=== PATIENT | female | born 1990 | race Caucasian/White ===

== ENCOUNTER 2018-10-26 20:00 | Inpatient (IN) | payer OTHER ==
[2018-10-26] MEDS ORDERED: TUBERCULIN PPD 5 TU/0.1ML SYRINGE (IN PATIENT USE ONLY) ID ONE (23:30)
[2018-10-26] MEDS ORDERED: BUTORPHANOL TARTRATE 1 MG/ML VIAL IVPB ONE (23:32)
[2018-10-26] MEDS ORDERED: PROMETHAZINE HCL 25 MG/1 ML VIAL IVPUSH ONE (23:32)
[2018-10-26 23:39] LABS: BASO % 0.5 % (0-2.0); EOS % 0.5 % (0-4.5); HEMATOCRIT 25.8 % (32.4-45.2); HEMOGLOBIN 8.7 GM/dL (10.7-15.3); LYMPH % 15.3 % (8-40); MCH 20.8 pg (25.7-33.7); MCHC 33.8 g/dl (32.0-36.0); MEAN CELL VOLUME 61.5 fl (80-96); MEAN PLT VOLUME 9.8 fl (7.5-11.1); MONO % 5.7 % (3.8-10.2); PLATELET COUNT 258 K/MM3 (134-434); RBC 4.19 M/mm3 (3.60-5.2); RDW 15.4 % (11.6-15.6)
--- NOTE | 2018-10-26 23:46 | HP ---
Past Medical History - Primary Care Physician PCP:: Rebekah Pyle - Admission Chief Complaint: 28 yrs EDC 10/23/18 , 40.3 weeks iup c/o pain onset since 5.00 pm today.pins q 5-6 min strong. h/o feeling wet since today AM. pt is drp in from [facility], suppose to deliver at [facility] History of Present Illness: pt brought records with her mainly provider notes are seen. U/A from eachprenatal visit noted All lab values , panel initial, & later is not seen Chart review pt seen in ER on 03/11/18 siup 8 weeks 03/15/18 repeat sono documents SLIUP fhr 160 bpm anemia h/h 8.5 /27.3, Plt 206. Blood Type A Pos , urine c /s no growth echogenic bowel noted in anatomy sono at 18 weeks Genetic counselling done : NIPT done reported normal / neg, Fragile X neg, sma rcr neg , Hgb A1A2, Sickle neg , NT Screen neg. 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 growth us were done last sono on 09/24/18: 35.6 wks sliup, cephalic, placenta Lt lateral, DREW 10.28cm efw 5'11" (32%tile), normal appearing bowel pt 's brought more records which gives Hbsag neg, Rubella immune, Hiv neg, Rpr neg , h/h 8.4/26.7 07/31/18 rpr nr, hiv nr 08/11/18 3 hr gtt 78, 137,108, 113, h/h 7.4/24.7 09/10/18 Ferritin 42, Folate 13.6ng, vit B12 443 pg, Iron level 211 mcg, Tibc 388, Transferrin 333, HgbA1c 4.4 10/01/18 h/h 8.3/27.3 GBS neg, GC/CT neg History Source: Patient, Medical Record Limitations to Obtaining History: No Limitations - Past Medical History Cardiovascular: No: HTN Pulmonary: No: Asthma Gastrointestinal: Yes: Constipation Hepatobiliary: No: Hepatitis B Renal/: No: UTI ...: 1 ...Para: 0 ...Term: 0 ...: 0 ...Spon : 0 ...Induced : 0 ...LMP: 01/16/18 ... Weeks Gestation by Dates: 40.3 ...EDC by Dates: 10/23/18 ...EDC by Sono: 10/23/18 (40.3 ) Heme/Onc: Yes: Anemia. No: Sickle Cell Trait Psych: No: Addictions, Anxiety, Bipolar, Depression, Panic, Psychosis, Schizophrenia, Other Endocrine: No: Diabetes Mellitus, Hypothyroidism - Past Surgical History Past Surgical History: Yes: None Hx Myomectomy: No Hx Transabdominal Cerclage: No - Smoking History Smoking history: Former smoker (age 16 yrs) Have you smoked in the past 12 months: No - Alcohol/Substance Use Hx Alcohol Use: No History of Substance Use: reports: None Home Medications - Allergies Allergies/Adverse Reactions: Allergies Allergy/AdvReac Type Severity Reaction Status Date / Time No Known Allergies Allergy Verified 10/26/18 22:36 - Home Medications Home Medications: Ambulatory Orders Prenat 115/Iron Fum/Folic/Dss [ 19 Tablet] 1 each PO DAILY 10/23/18 Physical Exam - Maternity Vital Signs: Vital Signs Temperature 98.8 F 10/26/18 22:37 Pulse Rate 75 10/26/18 22:37 Respiratory Rate 20 10/26/18 22:37 Blood Pressure 137/79 10/26/18 22:37 O2 Sat by Pulse Oximetry (%) Constitutional: Yes: Well Nourished, Anxious, Obese, Pallor, Other (nervous) Eyes: Yes: WNL HENT: Yes: WNL, Normocephalic Neck: Yes: WNL, Trachea Midline Cardiovascular: Yes: WNL, Regular Rate and Rhythm Lungs: Clear to auscultation Breast(s): Yes: WNL, Other (rt areolar skin is dry flaky thickened Lt areolar skin normal Nipples normal). No: Mass - Abdominal Exam/OB Fundal Height: 38 Number of Fetuses: Single Presentation: Vertex Contractions: Yes Regularity: Irregular (5-6) Intensity: Mod/Strong Monitor Mode: External Heart Rate (range): 130 Heart Rate Location: [facility] Category: I Accelerations: Uniform Decelerations: None - Vaginal Exam/OB Vaginal Bleediing: Bloody Show Speculum Exam: No Dilatation (cm): 4 Effacement (%): 90 Amniotic Membrane Status: Intact (not sure) Presentation: Vertex/Position (exam at 11.o"clock) Station: -2 - Physical Exam Musculoskeletal: Yes: WNL Extremities: Yes: WNL. No: Calf Tenderness Edema: Yes Edema: RUE: 1+, LLE: 1+ Integumentary: Yes: WNL Deep Tendon Reflex Grade: Normal +2 ...Motor Strength: WNL Psychiatric: Yes: WNL, Alert, Oriented - Labs Lab Results: Laboratory Tests 10/26/18 10/26/18 10/26/18 23:25 23:25 23:25 WBC 11.0 H Hgb 8.7 L Hct 25.8 L MCV 61.5 L MCH 20.8 L Plt Count 258 PT with INR 10.00 INR 0.85 PTT (Actin FS) 27.5 Sodium Potassium Chloride 105 Carbon Dioxide BUN Creatinine Random Glucose Total Bilirubin AST ALT Urine Protein 10/26/18 10/26/18 23:25 23:55 WBC Hgb Hct MCV MCH Plt Count PT with INR INR PTT (Actin FS) Sodium 138 Potassium 3.9 Chloride 105 Carbon Dioxide 25 BUN 13 Creatinine 0.8 Random Glucose 101 Total Bilirubin 0.3 AST 25 ALT 17 Urine Protein Negative Problem List - Problems (1) Post term over 40 weeks Code(s): O48.0 - POST-TERM (2) Anemia affecting first Code(s): O99.019 - ANEMIA COMPLICATING , UNSPECIFIED TRIMESTER (3) Obesity (BMI 30.0-34.9) Code(s): E66.9 - OBESITY, UNSPECIFIED (4) with care elsewhere Code(s): Z34.90 - ENCNTR FOR SUPRVSN OF NORMAL , UNSP, UNSP TRIMESTER Assessment/Plan 28 yrs 40.3 weeks , in labor Gbs neg severe anemia Plan : trial of labor pt prefers natural, analgesics or epidural analgesia declined anticipate vag del may ambulate 10/27/18 1.00AM cx 5cm/90/post/vx -1 /M?intact , bloody show pt tense , still declines meds for pain
[2018-10-26 23:57] LABS: INR 0.85 (0.83-1.09)
[2018-10-27] LABS: ACTIVATED PTT 27.5 SECONDS (25.2-36.5)
[2018-10-27 00:03] LABS: ANION GAP 9 MMOL/L (8-16); BLOOD UREA NITROGEN 13 mg/dL (7-18); CALCIUM 8.4 mg/dL (8.5-10.1); CHLORIDE 105 mmol/L (98-107); CO2 24 mmol/L (21-32); CREATININE 0.8 mg/dL (0.55-1.3); GLUCOSE,RANDOM 103 mg/dL (74-106); POTASSIUM 3.8 mmol/L (3.5-5.1); SODIUM 138 mmol/L (136-145)
[2018-10-27 00:07] LABS: ALBUMIN 2.5 g/dl (3.4-5.0); ALK PHOS 168 U/L (45-117); ANION GAP 8 MMOL/L (8-16); BILIRUBIN,TOTAL 0.3 mg/dL (0.2-1); BLOOD UREA NITROGEN 13 mg/dL (7-18); CALCIUM 8.4 mg/dL (8.5-10.1); CHLORIDE 105 mmol/L (98-107); CO2 25 mmol/L (21-32); CREATININE 0.8 mg/dL (0.55-1.3); GLUCOSE,RANDOM 101 mg/dL (74-106); POTASSIUM 3.9 mmol/L (3.5-5.1); SGOT/AST 25 U/L (15-37); SGPT/ALT 17 U/L (13-61); SODIUM 138 mmol/L (136-145); TOT PROT 6.6 g/dl (6.4-8.2)
[2018-10-27 00:11] LABS: URINE APPEARANCE CLEAR; URINE BILIRUBIN NEGATIVE (<2.0 mg/dL); URINE COLOR STRAW; URINE GLUCOSE (UA) NEGATIVE (NEGATIVE); URINE KETONE NEGATIVE (NEGATIVE); URINE LEUK ESTERASE TRACE (NEGATIVE); URINE NITRITE NEGATIVE (NEGATIVE); URINE PROTEIN NEGATIVE (NEGATIVE); URINE UROBILINOGEN NEGATIVE mg/dL (0.2-1.0)
[2018-10-27 00:13] VITALS: BMI 31.1
[2018-10-27 00:21] LABS: EPI CELLS RARE /HPF (FEW)
[2018-10-27 00:59] LABS: ANISOCYTOSIS 2+; MACROCYTOSIS 0; PLATELET ESTIMATE NORMAL; TEAR DROP CELLS 2+
[2018-10-27] MEDS: DEXTROSE 5%-LACTATED RINGERS 1,000 ML IV SCH ×2 (01:17→03:05)
[2018-10-27] MEDS ORDERED: BUTORPHANOL TARTRATE 1 MG/ML VIAL ONE ×3 (01:54→06:03)
[2018-10-27] MEDS ORDERED: PROMETHAZINE HCL 25 MG/1 ML VIAL ONE ×2 (01:54→06:03)
[2018-10-27] MEDS ORDERED: OXYTOCIN 30 UNITS in 0.9% NS 30 UNIT/500 ML INFUS.BAG IVPB ONE (03:02)
[2018-10-27] MEDS ORDERED: OXYTOCIN 30 UNITS in 0.9% NS 30 UNIT/500 ML INFUS.BAG IVPB SCH (04:30)
[2018-10-27] MEDS ORDERED: BUTORPHANOL TARTRATE 1 MG/ML VIAL IVPB ONE (06:30)
[2018-10-27] MEDS ORDERED: PROMETHAZINE HCL 25 MG/1 ML VIAL IVPB ONE (06:30)
[2018-10-27] MEDS ORDERED: OXYTOCIN 20 UNITS in 0.9% NS 20 UNIT/1,000 ML INFUS.BAG IV ONE ×2 (06:34→07:29)
[2018-10-27] MEDS ORDERED: LIDOCAINE HCL 1% PRESERVATIVE FREE - 30ML VIAL ONE (06:34)
--- NOTE | 2018-10-27 06:52 | PN ---
Progress Note, Labor Vaginal Exam #1 Labor Exam Date: 10/27/18 Labor Exam Time: 06:45 Heart Rate (range): 130 Dilatation: ant li Effacement (%): 100 Amniotic Membrane Status: Ruptured Presentation: Vertex/Position Station: +2 Remarks: fhr cat-1 uc 2-4 min 2.00AM stadol2 mg + phnrgan 25 mg iv stat . 4.30 AM Pitocin Augmentation 6.00AM Stadol1 mg + phenrgan 25 mg iv stat Selected Entries 10/27/18 06:00 Temperature 98.5 F Pulse Rate 66 Blood Pressure 135/75 Vaginal Exam #2 Labor Exam Date: 10/27/18 Labor Exam Time: 07:30 Heart Rate (range): 90-130 Dilatation: 10 Effacement (%): 100 Amniotic Membrane Status: Ruptured Presentation: Vertex/Position Station: +2 Remarks: fhr cat-2 , early decels uc 2-3 min Selected Entries 10/27/18 07:00 Temperature 98.3 F Pulse Rate 75 Blood Pressure 128/69
[2018-10-27] MEDS: OXYTOCIN 20 UNITS in 0.9% NS 20 UNIT/1,000 ML INFUS.BAG IV SCH ×2 (08:10→18:28)
[2018-10-27] MEDS: METHYLERGONOVINE MALEATE 0.2 MG/1 ML AMP IM PRN ×2 (08:15→09:15)
[2018-10-27 08:30] LABS: ARTERIAL BLD GAS O2 SATURATION 24.3 % (90-98.9); ARTERIAL BLOOD GAS BASE EXCESS 0.1 meq/l (-2-2); ARTERIAL BLOOD GAS PCO2 68.2 mmHg (35-45); ARTERIAL BLOOD GAS PO2 16.9 mmHg (80-100); ARTERIAL BLOOD GAS pH 7.27 (7.35-7.45)
[2018-10-27 08:35] LABS: VENOUS PC02 50.5 mmHg (38-52); VENOUS PH 7.34 (7.32-7.42); VENOUS PO2 26.4 mmHg (28-48)
[2018-10-27] MEDS ORDERED: BISACODYL 10 MG SUPP.RECT RC PRN (08:51)
[2018-10-27] MEDS ORDERED: oxyCODONE HCL 5 MG TABLET PO PRN (08:51)
[2018-10-27] MEDS ORDERED: IBUPROFEN 600 MG TABLET (FP) PO PRN (08:51)
[2018-10-27] MEDS ORDERED: WITCH HAZEL 50% (TUCKS) 40 PAD/JAR PAD TP PRN (08:51)
[2018-10-27] MEDS ORDERED: BENZOCAINE 28 GM HEMORRHOIDAL OINTMENT TP PRN (08:51)
[2018-10-27] MEDS ORDERED: BENZOCAINE 20% 57 GM BOTTLE TP PRN (08:51)
[2018-10-27] MEDS ORDERED: ACETAMINOPHEN 325 MG TABLET (FP) PO PRN (08:51)
--- NOTE | 2018-10-27 09:04 | PN ---
Delivery - Delivery Vaginal Delivery: No Problems, Spontaneous (baby delievered vx , [place] position, cord losse around neck ,reduced before delivery of shoulder . cord long , cord blood gas collected, cord blood collected. median epi was given which was sutured in layers with chr catgut #2/0. pt kept bleeding , placenta was delievered completely with membranes. Meu was done to remove blood clots, , ut was intermittently atonic, iv pitocin contd & IM methergine 0.2 mg was given . bladder catheterized & emtied .) Type of Anesthesia: Local Episiotomy/Laceration: Midline EBL (cc): 450 (urine output 350 ml ) Delivery, Single - Stages of Labor Date 1st Stage Initiatied: 10/26/18 Time 1st Stage Initiated: 17:00 Date 2nd Stage Initiated: 10/27/18 Time 2nd Stage Initiated: 07:30 Date of Delivery: 10/27/18 Time of Delivery: 08:02 Date Placenta Delivered: 10/27/18 Time Placenta Delivered: 08:10 Placenta: Yes: Spontaneous, Uterine Exploration - Condition of Infant Education Reviewer/Resident Assistant Cna Present: No Gender: Female Weight: 6 lb 5 oz Position: Left, OA (cord around neckx1) Total Hours ROM (Hrs/Mins): 10.hrs 10 min - 1 Minute Total Score: 9 5 Minutes Total Score: 9 - [place] Feeding Plan Initial Plan: Elected not to breastfeed exclusively throughout hospitalization Remarks - Remarks Remarks: 28 yra 40.3 weeks, , drop in, pnc with [facility] in [place] Gbs neg . h/o Anemia hgb 8.7 , hct 25.8 Intrapartum stadol 2 mg + phenrgan 25 mg iv followed by stadol 1 mg + phenrgan 25 mg iv was given . Pitocin augmentation was given Immediate uterine atony was encountered rx bimaual massage, pitoci, methergine v
[2018-10-27] MEDS: PRENATAL VITAMINS W/ FOLIC ACID TABLET (FP) PO SCH (13:40)
[2018-10-27] MEDS: FERROUS SO4 325 MG TABLET (FP) PO SCH (18:28)
[2018-10-28 03:16] LABS: HBsAG SCREEN Negative (Negative)
[2018-10-28 07:24] LABS: BASO % 0.4 % (0-2.0); EOS % 0.6 % (0-4.5); HEMATOCRIT 18.1 % (32.4-45.2); LYMPH % 19.1 % (8-40); MCHC 30.5 g/dl (32.0-36.0); MEAN CELL VOLUME 63.4 fl (80-96); MEAN PLT VOLUME 9.2 fl (7.5-11.1); MONO % 6.6 % (3.8-10.2); NEUT % 73.3 % (42.8-82.8); PLATELET COUNT 163 K/MM3 (134-434); RBC 2.86 M/mm3 (3.60-5.2); RDW 15.2 % (11.6-15.6); WHITE BLOOD COUNT 11.2 K/mm3 (4.0-10.0)
[2018-10-28 07:29] LABS: MCH 19.3 pg (25.7-33.7)
[2018-10-28 07:30] LABS: HEMOGLOBIN 5.5 GM/dL (10.7-15.3)
[2018-10-28] MEDS: FERROUS SO4 325 MG TABLET (FP) PO SCH ×2 (08:18→17:01)
[2018-10-28] MEDS: PRENATAL VITAMINS W/ FOLIC ACID TABLET (FP) PO SCH (09:18)
--- NOTE | 2018-10-28 10:27 | PN ---
Post Progress Note - Subjective Subjective: 28 yo Para 1 status post vaginal delivery, seen and evaluated. Doing well. Post Day: 1 Type of Delivery: Spon Vaginal Breech Vital Signs: Vital Signs Temperature 98.2 F 10/28/18 10:00 Pulse Rate 90 10/28/18 10:00 Respiratory Rate 20 10/28/18 10:00 Blood Pressure 112/59 L 10/28/18 10:00 O2 Sat by Pulse Oximetry (%) 98 10/27/18 09:30 Breast Exam: Yes: Soft Uterus: Yes: Fundus Firm Abdomen/GI: Yes: Abdomen soft, Tolerating PO Lochia: Yes: Rubra Lochia, amount: Moderate Extremities: Yes: Calves non-tender Activity: Ambulating - Labs Labs: CBC WBC 11.2 K/mm3 (4.0-10.0) H 10/28/18 06:45 RBC 2.86 M/mm3 (3.60-5.2) L 10/28/18 06:45 Hgb 5.5 GM/dL (10.7-15.3) L* 10/28/18 06:45 Hct 18.1 % (32.4-45.2) L D 10/28/18 06:45 MCV 63.4 fl (80-96) L 10/28/18 06:45 MCH 19.3 pg (25.7-33.7) L 10/28/18 06:45 MCHC 30.5 g/dl (32.0-36.0) L 10/28/18 06:45 RDW 15.2 % (11.6-15.6) 10/28/18 06:45 Plt Count 163 K/MM3 (134-434) D 10/28/18 06:45 MPV 9.2 fl (7.5-11.1) 10/28/18 06:45 Absolute Neuts (auto) 8.2 K/mm3 (1.5-8.0) H 10/28/18 06:45 Neutrophils % 73.3 % (42.8-82.8) 10/28/18 06:45 Lymphocytes % 19.1 % (8-40) D 10/28/18 06:45 Monocytes % 6.6 % (3.8-10.2) 10/28/18 06:45 Eosinophils % 0.6 % (0-4.5) 10/28/18 06:45 Basophils % 0.4 % (0-2.0) 10/28/18 06:45 Nucleated RBC % 0 % (0-0) 10/28/18 06:45 Hypochromia 3+ 10/26/18 23:25 Platelet Estimate Normal 10/26/18 23:25 Polychromasia 1+ 10/26/18 23:25 Poikilocytosis 2+ 10/26/18 23:25 Basophilic Stippling 1+ 10/26/18 23:25 Anisocytosis 2+ 10/26/18 23:25 Microcytosis 2+ 10/26/18 23:25 Macrocytosis 0 10/26/18 23:25 Tear Drop Cells 2+ 10/26/18 23:25 Problem List - Problems (1) Status post normal vaginal delivery Code(s): [id number] - Assessment/Plan Status post vaginal delivery Stable Continue routine care
[2018-10-28] MEDS ORDERED: SENNOSIDES/DOCUSATE COMBO (SENNA PLUS) TABLET (UD) PO PRN (22:00)
[2018-10-29 07:22] LABS: BASO % 0.4 % (0-2.0); HEMATOCRIT 18.1 % (32.4-45.2); LYMPH % 19.1 % (8-40); MCH 20.5 pg (25.7-33.7); MCHC 32.8 g/dl (32.0-36.0); MEAN CELL VOLUME 62.4 fl (80-96); MEAN PLT VOLUME 8.9 fl (7.5-11.1); MONO % 5.8 % (3.8-10.2); NEUT % 73.7 % (42.8-82.8); PLATELET COUNT 182 K/MM3 (134-434); RBC 2.89 M/mm3 (3.60-5.2); RDW 15.3 % (11.6-15.6); WHITE BLOOD COUNT 10.5 K/mm3 (4.0-10.0)
[2018-10-29 07:45] VITALS: BP 126/80; PULSE 88; TEMP 98.5
[2018-10-29 08:38] LABS: HEMOGLOBIN 5.9 GM/dL (10.7-15.3)
--- NOTE | 2018-10-29 08:57 | DS ---
Physical Exam-WOUND CARE CENTER CONSULTANT Vital Signs: Vital Signs Temperature 98.5 F 10/29/18 07:42 Pulse Rate 88 10/29/18 07:42 Respiratory Rate 18 10/29/18 07:42 Blood Pressure 126/80 10/29/18 07:42 O2 Sat by Pulse Oximetry (%) 98 10/28/18 21:00 Constitutional: Yes: Well Nourished, Obese, Pallor, Other (pt asymptomatic, denies h/o dizziness or fainting spells , sob or headaches) Eyes: Yes: WNL HENT: Yes: WNL, Normocephalic, Other (no headache) Neck: Yes: WNL Cardiovascular: Yes: WNL Respiratory: Yes: WNL. No: SOB Gastrointestinal: Yes: WNL ...Rectal Exam: Yes: WNL Renal/: Yes: Other (voiding without dificulty). No: CVA Tenderness - Left, CVA Tenderness - Right External Genitalia: Yes: Normal ....Post : Yes: Uterus firm, Moderate lochia rubra (epi wound healing . no c/o soreness) Integumentary: Yes: WNL, Tattoos Neurological: Yes: WNL, Alert, Oriented ...Motor Strength: WNL Psychiatric: Yes: WNL, Alert, Oriented Labs: CBC, BMP 10/29/18 06:50 10/26/18 23:25 Delivery - Delivery Vaginal Delivery: No Problems, Spontaneous (baby delievered vx , [place] position, cord losse around neck ,reduced before delivery of shoulder . cord long , cord blood gas collected, cord blood collected. median epi was given which was sutured in layers with chr catgut #2/0. pt kept bleeding , placenta was delievered completely with membranes. Meu was done to remove blood clots, , ut was intermittently atonic, iv pitocin contd & IM methergine 0.2 mg was given . bladder catheterized & emtied .) Type of Anesthesia: Local Episiotomy/Laceration: Midline EBL (cc): 450 Delivery, Single - Stages of Labor Date 1st Stage Initiatied: 10/26/18 Time 1st Stage Initiated: 17:00 Date 2nd Stage Initiated: 10/27/18 Time 2nd Stage Initiated: 07:30 Date of Delivery: 10/27/18 Time of Delivery: 08:02 Time Placenta Delivered: 08:10 Placenta: Yes: Spontaneous, Uterine Exploration - Condition of Infant Instructor Of Sociology/Fire Observer Present: No Infant Gender: Female Weight: 6 lb 5 oz Position: Left, OA Total Hours ROM (Hrs/Mins): 10.hrs 10 min - 1 Minute Total Score: 9 5 Minutes Total Score: 9 - Feeding Plan Initial Plan: Elected not to breastfeed exclusively throughout hospitalization Remarks - Remarks Remarks: 28 yra 40.3 weeks, , drop in, pnc with [facility] in [place] Gbs neg . h/o Anemia hgb 8.7 , hct 25.8 Intrapartum stadol 2 mg + phenrgan 25 mg iv followed by stadol 1 mg + phenrgan 25 mg iv was given . Pitocin augmentation was given Immediate uterine atony was encountered rx bimaual massage, pitoci, methergine v/s stable pp anemia more than before 5.9hgb pt is hemodynamically stable risk, benefits & alternatives of pack cell transfusion were discussed with her in details yesterday & today pt is very well aware of anemia symptoms & complications like headache, sob, fainting spells hence fall & injury etc. pt prefers to take Expectant management ,It will be slow built up of Hgb , she knows it is important to take iron , vit & high protein & high iron diet regularly . She signed refusal to take blood transfusion . she states ,she will go for follow up with her ob clinic in [place], & also kep appointment with Pensionholder Information Clerk pt is given all blood work up for her physicians Discharge today Discharge Summary Reason For Visit: LABOR Current Active Problems Anemia affecting first (Acute) Normal spontaneous vaginal delivery (Acute) Obesity (BMI 30.0-34.9) (Acute) Post term over 40 weeks (Acute) with care elsewhere (Acute) Status post normal vaginal delivery (Acute) Condition: Stable - Instructions Diet, Activity, Other Instructions: Post Instructions DIET: Continue good diet high in protein, calcium, and iron rich foods. Drink at least eight (8) glasses of water daily in addition to other fluids. ___ Regular diet MEDICATIONS: Continue vitamins and iron as previously directed. Motrin and Tylenol may be taken for minor discomfort. ACTIVITY: Mild to moderate exercise may be started in two (2) weeks. Take frequent rest periods. Resume normal activity after six (6) week check up. WOUND CARE OF OPERATIVE SITE: Continue use of perineal bottle until vaginal discharge stops. Keep area clean. Shower daily. Keep abdominal wound dry. Report any drainage or redness to physician. Tub baths, tampons and douches are not permitted for [address] Breast feeding & or Bottle feeding BREAST CARE: (For those that are not ): If engorgement occurs: Wear tight fitting bra. Take Tylenol or Motrin for pain. Apply cold packs (ice in bags to each breast ) FAMILY PLANNING: There are many control alternatives to pursue and they should be discussed at your first office visit. You may resume sexual activity after your six (6) week check up. (Remember, is not a contraceptive) NEXT PHYSICIAN APPOINTMENT: Be certain to call for a three (3) week appointment, unless otherwise directed. Follow with Pensionholder Information Clerk for severe anemia Follow with Tree Care Foreman for Breast areolar skin evaluation Call Clinic or got to Emergency Dept if you have any of the following: Heavy vaginal bleeding Painful urination Leg pain Unusual odor noted to vaginal bleeding High fever Red streaking noted on breast Referrals: Rebekah Pyle MD [Staff Physician] - Disposition: HOME - Home Medications Comprehensive Discharge Medication List: Ambulatory Orders Prenat 115/Iron Fum/Folic/Dss [ 19 Tablet] 1 each PO DAILY 10/23/18 Acetaminophen [Tylenol .Regular Strength -] 650 mg PO Q3H PRN tablet 10/28/18 Benzocaine [Americaine 20% [place] -] 1 spray TP PRN PRN bottle 10/28/18 Ferrous Sulfate [Feosol] 325 mg PO BIDWM #60 tab 10/28/18 Ibuprofen [Motrin -] 200 mg PO Q4H PRN tablet 10/28/18 Vitamins (Sjr) - 1 tab PO DAILY #30 tablet 10/28/18 Sennosides/Docusate Sodium [Pericolace -] 2 each PO HS #60 tablet 10/28/18 Witch Denise 50% (Tucks) [Tucks Pads -] 1 pad TP PRN PRN pad 10/28/18
[2018-10-29] MEDS: FERROUS SO4 325 MG TABLET (FP) PO SCH ×2 (09:00→17:33)
[2018-10-29] MEDS: PRENATAL VITAMINS W/ FOLIC ACID TABLET (FP) PO SCH (09:17)
== END 2018-10-29 17:35 | disposition home or self-care (01) | DRG 560 ==
LOC: JDEL 20:00 → JLDR 20:55 → JDEL 22:26 → J3W 10-27 10:38
PROVIDERS: ADMIT Obstetrics & Gynecology; ATTEND Obstetrics & Gynecology
PROC: 10E0XZZ Delivery of Products of Conception, External Approach (ICD-10-PCS; principal; 2018-10-27)
PROC: 0W8NXZZ Division of Female Perineum, External Approach (ICD-10-PCS; 2018-10-27)
DX: O48.0 Post-term pregnancy (principal); Z3A.40 40 weeks gestation of pregnancy; O99.013 Anemia complicating pregnancy, third trimester; D64.9 Anemia, unspecified; O99.213 Obesity complicating pregnancy, third trimester; E66.9 Obesity, unspecified; Z68.31 Body mass index [BMI] 31.0-31.9, adult; O69.81X0 Labor and delivery complicated by cord around neck, without compression, not applicable or unspecified; Z37.0 Single live birth
CPT/HCPCS: 36415; 36600; 59409; 80048; 80053; 81003; 81015; 82803; 85025; 85610; 85730; 86593; 86762; 86850; 86900; 86901; 87340; 87389

== ENCOUNTER 2019-04-01 13:09 | Emergency (ER) | payer OTHER ==
--- NOTE | 2019-04-01 13:23 | PDOC ---
Rapid Medical Evaluation Time Seen by Provider: 04/01/19 13:17 Medical Evaluation: Allergies Allergy/AdvReac Type Severity Reaction Status Date / Time No Known Allergies Allergy Verified 10/26/18 22:36 04/01/19 13:17 I have performed a brief in-person evaluation of this patient. The patient presents with a chief complaint of: can't feel left side, SOB, lump to R neck, pain to left head, "fluid coming out of L ear", symptoms started last week, almost fainted 30 minutes ago, "my vision feels blurry on my left side", denies PMH, denies meds/OCPs, denies fam hx of stroke/TIA at young age Pertinent physical exam findings: no focal neuro deficits, palpable tender nodule to R posterior head/lat/neck I have ordered the following: labs, ekg, head ct The patient will proceed to the ED for further evaluation.
[2019-04-01 13:24] VITALS: BP 104/60; PULSE 100; TEMP 98.3; BMI 24.3
[2019-04-01 14:53] LABS: BASO % 0.5 % (0-2.0); EOS % 0.8 % (0-4.5); HEMATOCRIT 28.3 % (32.4-45.2); LYMPH % 40.8 % (8-40); MCHC 31.7 g/dl (32.0-36.0); MEAN CELL VOLUME 59.1 fl (80-96); MEAN PLT VOLUME 8.8 fl (7.5-11.1); MONO % 9.2 % (3.8-10.2); NEUT % 48.7 % (42.8-82.8); PLATELET COUNT 260 K/MM3 (134-434); RBC 4.79 M/mm3 (3.60-5.2); RDW 15.7 % (11.6-15.6); WHITE BLOOD COUNT 3.9 K/mm3 (4.0-10.0)
[2019-04-01 14:55] LABS: MCH 18.7 pg (25.7-33.7)
[2019-04-01 15:20] LABS: ALBUMIN 4.1 g/dl (3.4-5.0); ALK PHOS 60 U/L (45-117); ANION GAP 4 MMOL/L (8-16); BILIRUBIN,TOTAL 0.5 mg/dL (0.2-1); BLOOD UREA NITROGEN 10 mg/dL (7-18); CALCIUM 8.8 mg/dL (8.5-10.1); CHLORIDE 108 mmol/L (98-107); CO2 28 mmol/L (21-32); CREATININE 0.7 mg/dL (0.55-1.3); GLUCOSE,RANDOM 99 mg/dL (74-106); SGOT/AST 16 U/L (15-37); SGPT/ALT 25 U/L (13-61); SODIUM 140 mmol/L (136-145); TOT PROT 7.5 g/dl (6.4-8.2)
--- NOTE | 2019-04-01 15:24 | EKG ---
Test Reason : Blood Pressure : / mmHG Vent. Rate : 064 BPM Atrial Rate : 064 BPM P-R Int : 180 ms QRS Dur : 076 ms QT Int : 406 ms P-R-T Axes : 029 058 050 degrees QTc Int : 418 ms NORMAL SINUS RHYTHM NORMAL ECG NO PREVIOUS ECGS AVAILABLE Confirmed by ISADORA SHEIKH, CARMITA ([id number]) on 04/01/2019 3:23:42 PM Referred By: Confirmed By:CARMITA MUIR MD
[2019-04-01 15:25] LABS: INR 1.15 (0.83-1.09); PROTHROMBIN TIME (PATIENT) 13.6 SEC (9.7-13.0)
--- NOTE | 2019-04-01 15:28 | PDOC ---
History of Present Illness - General Chief Complaint: CVA/TIA Stated Complaint: HEADACHE/ LEFT SIDE NUMBNESS Time Seen by Provider: 04/01/19 13:17 History Source: Patient Exam Limitations: No Limitations - History of Present Illness Initial Comments: 04/01/19 15:10 28F with no PMH (has not seen a PCP in many years) who presents to the ER with multiple complaints. The patient states that she has had 2-3 weeks of lightheadedness and near syncope. She states that this occurs only sometimes but especially when she lays down. She also complains of a L sided headache which occured yesterday and is present today. She states that when it occurred yesterday, she had L sided blurry vision and L arm numbness and tingling with blood and pus coming out of her L ear for approximately 5 minutes. She admits to cold sweats but denies fever, chills, and nausea. She admits to 1 bout of hematemesis today but does not feel nauseous now. She also complains of a lump on the back of her neck on the L side which has been there for 1 week. She has never had these symptoms in the past. Past History - Past Medical History Allergies/Adverse Reactions: Allergies Allergy/AdvReac Type Severity Reaction Status Date / Time No Known Allergies Allergy Verified 04/01/19 13:18 Home Medications: Ambulatory Orders Prenat 115/Iron Fum/Folic/Dss [ 19 Tablet] 1 each PO DAILY 10/23/18 Acetaminophen [Tylenol .Regular Strength -] 650 mg PO Q3H PRN tablet 10/28/18 Benzocaine [Americaine 20% [place] -] 1 spray TP PRN PRN bottle 10/28/18 Ferrous Sulfate [Feosol] 325 mg PO BIDWM #60 tab 10/28/18 Ibuprofen [Motrin -] 200 mg PO Q4H PRN tablet 10/28/18 Vitamins (Sjr) - 1 tab PO DAILY #30 tablet 10/28/18 Sennosides/Docusate Sodium [Pericolace -] 2 each PO HS #60 tablet 10/28/18 Witch Denise 50% (Tucks) [Tucks Pads -] 1 pad TP PRN PRN pad 10/28/18 Asthma: No Cancer: No Cardiac Disorders: No COPD: No Diabetes: No HTN: No Seizures: No Thyroid Disease: No - Immunization History Immunization Up to Date: Yes - Suicide/Smoking/Psychosocial Hx Smoking History: Never smoked Have you smoked in the past 12 months: No Information on smoking cessation initiated: No Hx Alcohol Use: No Drug/Substance Use Hx: No Hx Substance Use Treatment: No Review of Systems - Review of Systems Able to Perform ROS?: Yes Comments:: 04/01/19 15:28 GENERAL/CONSTITUTIONAL: No fever or chills. No weakness. HEAD, EYES, EARS, NOSE AND THROAT: + for blurry vision. + for ear discharge. No sore throat. CARDIOVASCULAR: + for near syncope. No chest pain or palpitations. RESPIRATORY: No cough, wheezing, shortness of breath, or hemoptysis. GASTROINTESTINAL: + for hematemesis. No nausea, diarrhea, constipation, or abdominal pain. GENITOURINARY: No dysuria, frequency, hematuria, or change in urination. MUSCULOSKELETAL: No joint or muscle swelling or pain. No neck or back pain. SKIN: No rash or lesions. NEUROLOGIC: + for headache, L arm numbness and tingling. No focal weakness, loss of consciousness, or change in strength/sensation. Is the patient limited Albanian proficient: No *Physical Exam - Vital Signs Last Vital Signs Temp Pulse Resp BP Pulse Ox 98.3 F 100 H 16 104/60 99 04/01/19 13:19 04/01/19 13:19 04/01/19 13:19 04/01/19 13:19 04/01/19 13:19 - Physical Exam Comments: 04/01/19 15:30 GENERAL: Well developed, well nourished. Awake and alert. No acute distress. HEENT: Normocephalic, atraumatic. Hearing grossly normal. Moist mucous membranes. PERRLA, EOMI. No conjunctival pallor. Sclera are non-icteric. NECK: Supple. Full ROM. No JVD. 0.5cm LN in L posterior auricle noted. CARDIOVASCULAR: Regular rate and rhythm. No murmurs, rubs, or gallops. PULMONARY: No evidence of respiratory distress. Lungs clear to auscultation bilaterally. No wheezing, rales or rhonchi. ABDOMINAL: Soft. Non-tender. Non-distended. No rebound or guarding. GENITOURINARY: No CVA tenderness bilaterally. MUSCULOSKELETAL: Normal range of motion at all joints. No bony deformities or tenderness. EXTREMITIES: No cyanosis. No clubbing. No edema. No calf tenderness or swelling. SKIN: Warm and dry. Normal capillary refill. No rashes. No jaundice. NEUROLOGICAL: Alert, awake, appropriate. Cranial nerves 2-12 intact. Decreased sensation in L arm. Otherwise, no deficits to light touch and temperature in face, upper extremities and lower extremities. 5/5 strength in deltoids, biceps , triceps, quadriceps, hamstrings, and gastrocnemius. Normal speech. Gait is normal without ataxia. PSYCHIATRIC: Cooperative. Good eye contact. Appropriate mood and affect. ED Treatment Course - LABORATORY CBC & Chemistry Diagram: 04/01/19 14:34 04/01/19 14:34 - ADDITIONAL ORDERS Additional order review: 04/01/19 14:34 RBC 4.79 MCV 59.1 L MCHC 31.7 L RDW 15.7 H MPV 8.8 Neutrophils % 48.7 D Lymphocytes % 40.8 H D Monocytes % 9.2 Eosinophils % 0.8 Basophils % 0.5 - RADIOLOGY Radiology Studies Ordered: Category Date Time Status CHEST PA & LAT [RAD] Stat Radiology 04/01/19 15:08 Ordered Medical Decision Making - Medical Decision Making 04/01/19 15:31 28F with no PMH who presents with multiple vague complaints including L arm numbness, h/a, near syncope, and lump on L side of neck. Concern for intracranial process, MS, or infection. Pending labs and imaging. 04/01/19 17:03 Labs WNL for pt, Hgb noted and addressed w/ patient who knows she has a hx of anemia. CTH and CXR negative. EKG unremarkable. Pt states that her arm numbness is intermittent for 5 months. Will give PCP and neuro f/u. *DC/Admit/Observation/Transfer Diagnosis at time of Disposition: Numbness and tingling, Light-headedness - Discharge Dispostion Disposition: HOME Condition at time of disposition: Stable Decision to Admit order: No - Referrals Referrals: Jose Conrad MD [Staff Physician] - [facility] [Provider Group] - Patient Instructions Printed Discharge Instructions: DI for Numbness/tingling Additional Instructions: Your ER visit is not complete until your follow up with your primary care physician and neurologist (Dr. Conrad). Please follow up with your primary care physician in 1-2 days. Please return to the ER if you have any signs or symptoms of chest pain, shortness of breath, uncontrollable fever, chills, nausea, vomiting, numbness, tingling, or weakness in any part of your body, changes in vision, or slurred speech. Please return to the ER if symptoms persist, worsen, or new symptoms arise. - Post Discharge Activity
[2019-04-01 15:34] LABS: ANISOCYTOSIS 2+; MACROCYTOSIS 0; OVALOCYTE 1+; PLATELET ESTIMATE NORMAL
--- NOTE | 2019-04-01 17:15 | PDOC ---
Documentation entered by Guillermina Vegas SCRIBE, acting as scribe for Mo Chamberlain MD. Mo Chamberlain MD: This documentation has been prepared by the Ascencion goel Adrianna, SCRIBE, under my direction and personally reviewed by me in its entirety. I confirm that the documentation accurately reflects all work, treatment, procedures, and medical decision making performed by me. Attending Attestation - Resident Resident Name: SureshcooperanatBrandon - [facility] HPI: The patient is a 28 year old female, with no significant PMH, who presents with lightheadedness for 2-3 weeks, and headache and paresthesia for one day. Patient notes she feels lightheaded when she lays down, and reports associated room-spinning dizziness. She reports having a left-sided headache yesterday which lasted for 5 minutes and caused blood and pus to come out of her left ear. Additionally, patient reports numbness radiating from her left shoulder to her left hip, with blurry vision in her left eye, and a bump on the left side of the back of her neck. Allergies: NKA Past surgical history: None reported Social history: No reported PCP: None 04/01/19 15:49 - Physicial Exam PE: 04/01/19 17:11 Patient is awake and alert, well-nourished, in no distress Normocephalic, atraumatic PERRLA, EOMI, visual acuity is 20/20 bilaterally, no nystagmus Right posterior cervical lymph node noted, neck is supple, no midline tenderness or deformity CTA RRR Abdomen soft, nondistended, nontender Cranial nerves II through XII are grossly intact; motor is 5 of 54; DTRs are + 2 bilaterally, gait is stable - Medical Decision Making EXAM#: TYPE/EXAM: RESULT: [id number] CT/HEAD CT WITHOUT CONTRAST Cranial CT without contrast CLINICAL INFORMATION: near syncope, acute headache IMPRESSION: No CT evidence of acute intracranial pathology. Reported By: Nando Engle MD 04/01/19 16:11 04/01/19 16:43 04/01/19 17:13 Patient is well-appearing 28-year-old female who presents to the with multiple complaints including dizziness (near syncope, mild recurrent left- sided headache that she's had for the past 5 months, intermittent blurry vision for 5 months, intermittent left arm paresthesias of the past 5 months, episode of hematemesis and an episode of bleeding from the left ear In the ER, patient is awake and alert, well-nourished, in no distress. Neurological evaluation reveals no focal tenderness, visual acuity is 20/20 bilaterally. There is no evidence of TM perforation or otitis externa bilaterally. CT of head shows no evidence acute pathology. EKG reveals no evidence of acute ischemia or dysrhythmia. There are no acute issues at this time. I do not suspect Guillain- Linda, CVA or and mass. Patient will be discharged with outpatient follow-up with neurology.
== END 2019-04-01 17:12 | disposition home or self-care (01) ==
LOC: JER 13:09
DX: R42 Dizziness and giddiness (principal); R20.0 Anesthesia of skin; R20.2 Paresthesia of skin
CPT/HCPCS: 36415; 70450-TC; 71046-TC-FY; 80053; 82550; 84484; 84703; 85025; 85610; 93005; 93010; 99283-25